=== PATIENT | male | born 1945 ===

== ENCOUNTER 2022-02-28 06:38 | Day surgery (SDC) | payer OTHER ==
--- NOTE | 2022-02-27 09:57 | RAD REPORT ---
EXAM DESCRIPTION: RAD - Chest Pa And Lat (2 Views) - 02/27/2022 9:34 am CLINICAL HISTORY: pre op carotid angiogram Chest pain. COMPARISON: Chest Pa And Lat (2 Views) dated 10/05/2017; Chest Single View dated 09/05/2016; CHEST PA AND LAT 2 VIEW dated 10/23/2013; CHEST SINGLE VIEW dated 06/23/2013 TECHNIQUE: PA and lateral views of the chest were obtained. FINDINGS: The lungs are hyperexpanded compatible with COPD. The heart is upper limit of normal in si ze. No fracture or aggressive bony process. Sternotomy wires noted. IMPRESSION: COPD without acute process identified. The USPSTF recommends annual screening for lung cancer with low-dose CT (LDCT) in adults aged 50 to 80 years who have a 20 pack-year smoking history and currently smoke or have quit within the past 15 years.
[2022-02-27 10:00] LABS: Absolute Lymphocytes (CBC) 0.8 K/uL (0.7-4.9); Hematocrit 45.6 % (39.6-49.0); Lymphocytes % 9.1 % (15.3-44.8); MCV 101.5 fL (80-100); MPV 7.6 fL (7.6-11.3); RBC Red Blood Cell Count 4.49 M/uL (4.33-5.43)
[2022-02-27 10:01] LABS: Protime INR 1.12
[2022-02-27 10:04] LABS: Potassium 4.4 mmol/L (3.5-5.1)
[2022-02-27 10:23] LABS: SARS-CoV-2 Antigen Rapid Res Negative (Negative)
[~2022-02-28 06:38] MED LIST: ATROPINE SULF 1 MG/10 ML SYR IV ONE; FENTANYL CITR 100 MCG/2 ML ONE; HEPA 1000U/500MLS 1,000 UNIT/500 ML BAG IV ONE; LIDOCAINE 1% MPF 30 ML VIAL ONE; MIDAZOLAM HCL 2 MG/2 ML INJ ONE
[2022-02-28] MEDS ORDERED: NA CHLORIDE 0.9% 500 ML ONE (06:44)
[2022-02-28 10:21] VITALS: BP 142/72; O2SAT 98
--- NOTE | 2022-02-28 12:34 | OP ---
Surgeon: Rich Miramontes MD Log Manager: Ms. Charlene Munoz. The patient was admitted and underwent a common femoral artery angiogram, aortic arch angiogram, left subclavian artery angiogram, and bilateral selective carotid artery angiogram. Indication: Severe cerebrovascular disease. Mr. Pratt is 77, history of diabetes, hypertension dysl ipidemia CABG, he is status post left ICA stent in the past. Doppler showed severe stenosis on the r ight side of his carotid. Procedure In Detail: Brought to the matlab developer today, prepped and draped in routine sterile fashion. Given Versed and fentanyl for sedation. A 6-[place] sheath introduced in the right common femoral art margot successfully. Angiography there was normal. Angio-Seal was used to close the case. A JR4 usama ter was used to initially cannulate the right common carotid artery. This was found to have a 70% ri ght common carotid artery and 90% right ICA, completely occluded right external carotid artery. I at tempted to cannulate the left common carotid artery with a JR4 and a 3DRC and was unsuccessful. Merlene ography of the common subclavian was done because of obvious stenosis there and he had a 50% stenosis on the left subclavian artery. Following that, a pigtail catheter was introduced in the aortic arch . Angiography there showed a normal aortic arch, but there was no obvious left common carotid artery assuming it is completely occluded. There were no complications. Blood loss was 5 mL. Postoperative Diagnosis: Severe cerebrovascular disease. Plan: Plan for a right common carotid artery/ICA stent. I think he is a much better candidate for s tent and surgery. Anesthesia: Total conscious sedation was 60 minutes. The patient will be at bedrest for 2 hours after the procedure and I will make arrangements for outpa tient followup in [place]. He will have a CD with him and so will I. SHALINI/NICHELLEL Voice ID: [id number] Report ID: [id number]
== END 2022-02-28 10:07 | disposition home or self-care (01) ==
LOC: CCL 06:38
DX: I65.23 Occlusion and stenosis of bilateral carotid arteries (principal); I25.10 Atherosclerotic heart disease of native coronary artery without angina pectoris; I10 Essential (primary) hypertension; E78.2 Mixed hyperlipidemia; E11.9 Type 2 diabetes mellitus without complications; J44.1 Chronic obstructive pulmonary disease with (acute) exacerbation; G47.00 Insomnia, unspecified; Z95.1 Presence of aortocoronary bypass graft; Z95.5 Presence of coronary angioplasty implant and graft; Z87.891 Personal history of nicotine dependence; Z79.899 Other long term (current) drug therapy; Z88.0 Allergy status to penicillin; Z20.822 Contact with and (suspected) exposure to COVID-19
CPT/HCPCS: 85025; 80048; 36415; 85610; 85730; 71046; 36222; 87811; C1893; C1760; G0269; J2250; J3010; J7040; J1644; 36215